=== PATIENT | female | born 1960 | race Caucasian/White ===

== ENCOUNTER 2024-12-15 18:20 | Emergency (ER) | payer OTHER ==
[~2024-12-15] VITALS: Ht 170.2 cm; Wt 65.9 kg
[2024-12-15] MEDS ORDERED: [UNRECOGNIZED DRUG - OTHER] PO (18:23)
[2024-12-15 18:26] VITALS: TEMP 99.1
[2024-12-15 18:35] LABS: COVID AG,FIA SOURCE NASAL SWAB
[2024-12-15 19:02] LABS: SARS-COV2 (COVID) ANTIGEN,FIA Negative (Negative)
[2024-12-15 19:03] LABS: INFLUENZA TYPE A NEGATIVE FOR TYPE A (NEGATIVE); INFLUENZA TYPE B NEGATIVE FOR TYPE B (NEGATIVE)
[2024-12-15] MEDS ORDERED: AMOX-457 PO (20:37)
[2024-12-15] MEDS ORDERED: FLUT16SP NASAL (20:37)
[2024-12-15] MEDS: OXYMETAZOLINE HCL 0.05% 15 ML NASAL SPRAY NASAL ONE (20:38)
[2024-12-15 20:40] VITALS: BP 127/60; PULSE 77; RESP 18; O2SAT 95
== END 2024-12-15 20:52 | disposition home or self-care (01) ==
LOC: EMS 18:20
DX: J01.90 Acute sinusitis, unspecified (principal); B97.89 Other viral agents as the cause of diseases classified elsewhere; Z20.822 Contact with and (suspected) exposure to COVID-19
CPT/HCPCS: 87430; 87804; 99283